=== PATIENT | male | born 1945 | race Caucasian/White ===

== ENCOUNTER 2016-07-29 10:24 | Emergency (ER) | payer MEDICARE, BC ==
[2016-07-29] MEDS ORDERED: DOXYcycline CAP(*) 100 MG PO ONE (10:46)
--- NOTE | 2016-07-29 10:53 | UC ---
Skin Complaint HPI - HPI Summary HPI Summary: 71 y/o male presents to the urgent care c/o of a tick bite on his left buttocks that he noticed this morning. He was gardening 2 days ago. He brings the tick which still alive. Patient states there mild pain aroun the area of the tick bite. Denies fever, SOB, Chest pain, N/V/D. After making him aware of his elevated BP pt staes he is a little bit anxious and that he took his BP medication this morning. Pt reports he has a f/u with his PCP next week for his neuropathy. - History of Current Complaint Chief Complaint: UCSkin Time Seen by Provider: 07/29/16 10:29 Stated Complaint: TICK BITE Hx Obtained From: Patient Onset/Duration: Sudden Onset, Lasting Hours, Still Present Skin Exposure Onset/Duration: Days Ago - 2 days Timing: Constant Pain Intensity: 1 Pain Scale Used: 0-10 Numeric Location: Other - left buttocks Alleviating: Nothing Associated Signs & Symptoms: Negative: Nausea, Vomiting, Numbness, Fever, Lightheadedness Related History: Insect Bite/Sting - tick bite - Allergy/Home Medications Allergies/Adverse Reactions: Allergies Allergy/AdvReac Type Severity Reaction Status Date / Time No Known Allergies Allergy Verified 07/29/16 10:29 Home Medications: Home Medications Amlodipine Besylate [Norvasc 5 mg tab] 5 mg PO DAILY 07/29/16 [History Confirmed 07/29/16] Review of Systems Skin: Other - tick bite Eyes: Negative ENT: Negative Respiratory: Negative Gastrointestinal: Negative Genitourinary: Negative Motor: Negative Neurovascular: Negative Musculoskeletal: Negative Neurological: Negative Psychological: Negative All Other Systems Reviewed And Are Negative: Yes PMH/Surg Hx/FS Hx/Imm Hx Endocrine History Of: Denies: Diabetes Cardiovascular History Of: Reports: Hypertension Denies: Pacemaker/ICD GI/ History Of: Denies: Renal Disease - Surgical History Surgical History: Yes Surgery Procedure, Year, and Place: 2009 RT EAR EXCISION OF EXOSTOSIS ( REMOVAL OF BONE -NO IMPLANTS) AT [facility] – [place]. 2010 LT EAR EXCISION OF EXOSTOSIS AT [facility] – [place]. VASECTOMY - Family History Known Family History: Positive: Cardiac Disease, Hypertension - Social History Occupation: Retired Alcohol Use: Daily Alcohol Amount: 1 drink a day Substance Use Type: None Smoking Status (MU): Never Smoked Tobacco Physical Exam Triage Information Reviewed: Yes Appearance: Well-Appearing, No Pain Distress, Well-Nourished Vital Signs: Initial Vital Signs Temp 97.9 F 07/29/16 10:31 Pulse 69 07/29/16 10:31 Resp 16 07/29/16 10:31 BP 174/87 07/29/16 10:31 Pulse Ox 98 07/29/16 10:31 Vital Signs Reviewed: Yes Eye Exam: Normal Eyes: Positive: Conjunctiva Clear ENT Exam: Normal ENT: Positive: Normal ENT inspection, Hearing grossly normal, Pharynx normal, TMs normal Dental Exam: Normal Neck: Positive: Supple, Nontender, No Lymphadenopathy Respiratory Exam: Normal Respiratory: Positive: Lungs clear, Normal breath sounds Cardiovascular Exam: Normal Cardiovascular: Positive: RRR, Pulses Normal Abdominal Exam: Normal Abdomen Description: Positive: Nontender, No Organomegaly Musculoskeletal Exam: Normal Musculoskeletal: Positive: Strength Intact Neurological Exam: Normal Psychological Exam: Normal Psychological: Positive: Other: - LF buttocks tick bite with out presence of any remnants. Mild erythma and tenderness on palpation. no swelling Course/Dx - Course Course Of Treatment: TICK BITE: PT desi in to the clinic the tick alive. Patient was given Doxycycline 200mg PO prophylactically against Lyme disease. Patient understood and agree and tolerated well medication. Uncontrolled HTN: BP: 174/87 HR:69. Patient states he is anxious due to tick bite and that he took BP medication this morning Amlodipine 5mg PO qd. Patient advised to decrease salt intake and f/u with his PCP next week. Monitor his BP at home. Pt understood and agree. - Differential Diagnoses - Skin Complaint Differential Diagnoses: Cellulitis, Local Allergic Reaction, Other - tick bite, - Diagnoses Provider Diagnoses: Tick bite, Uncontrolled hypertension Discharge - Discharge Plan Condition: Stable Disposition: HOME Patient Education Materials: Tick Bite (ED), Hypertension (ED) Referrals: Rafael Beltran MD [Primary Care Provider] - 1 Week Additional Instructions: Patient given prophylactic antibiotics for lyme disease. Patient advised to f/ u with PCP for uncontrolled hypertension and decrease salt intake. If symptoms of dizziness or headache develop please return to the urgent care or f/u with your PCP
[2016-07-29 10:58] VITALS: BP 174/87
== END 2016-07-29 11:11 | disposition home or self-care (01) ==
LOC: UCEAST 10:24
DX: S30.860A Insect bite (nonvenomous) of lower back and pelvis, initial encounter (principal); W57.XXXA Bitten or stung by nonvenomous insect and other nonvenomous arthropods, initial encounter; Y93.9 Activity, unspecified; Y92.9 Unspecified place or not applicable; I10 Essential (primary) hypertension
CPT/HCPCS: 99212; A9270-GY; G0463

== ENCOUNTER 2016-12-30 17:14 | Emergency (ER) | payer MEDICARE, BC ==
[2016-12-30 17:28] VITALS: BP 156/96
--- NOTE | 2016-12-30 17:44 | UC ---
Hypertension HPI - HPI Summary HPI Summary: 71 year old male presents with complains of hypertension, dizziness, and weakness . He was told by his physician to increase his dose of lorsartan to 100 mg daily but he continues to feel dizzy and weak. - History of Current Complaint Chief Complaint: UCGeneralIllness Stated Complaint: HIGH BLOOD PRESSURE Time Seen by Provider: 12/30/16 17:41 Hx Obtained From: Patient Onset/Duration: Sudden Onset - Allergies/Home Medications Allergies/Adverse Reactions: Allergies Allergy/AdvReac Type Severity Reaction Status Date / Time No Known Allergies Allergy Verified 12/30/16 17:28 Home Medications: Home Medications Losartan TAB* [Cozaar TAB*] 100 mg PO DAILY 12/30/16 [History Confirmed 12/30/16 ] PMH/Surg Hx/FS Hx/Imm Hx Previously Healthy: Yes - Surgical History Surgical History: Yes Surgery Procedure, Year, and Place: 2009 RT EAR EXCISION OF EXOSTOSIS ( REMOVAL OF BONE -NO IMPLANTS) AT [facility]. 2010 LT EAR EXCISION OF EXOSTOSIS AT [facility]. VASECTOMY - Family History Known Family History: Positive: Cardiac Disease, Hypertension - Social History Alcohol Use: Daily Alcohol Amount: 1 drink a day Substance Use Type: None Smoking Status (MU): Never Smoked Tobacco Review of Systems Constitutional: Chills, Fatigue Skin: Negative Eyes: Negative ENT: Negative Respiratory: Negative Cardiovascular: Negative Gastrointestinal: Negative Genitourinary: Negative Motor: Negative Neurovascular: Negative Musculoskeletal: Negative Neurological: Negative Psychological: Negative All Other Systems Reviewed And Are Negative: Yes Physical Exam Triage Information Reviewed: Yes Vital Signs: Initial Vital Signs Temp 36.9 C 12/30/16 17:22 Pulse 87 12/30/16 17:22 Resp 18 12/30/16 17:22 BP 156/96 12/30/16 17:22 Pulse Ox 100 12/30/16 17:22 Vital Signs Reviewed: Yes Eye Exam: Normal ENT Exam: Normal Dental Exam: Normal Neck exam: Normal Neck: Positive: 1 Respiratory Exam: Normal Cardiovascular Exam: Normal Abdominal Exam: Normal Musculoskeletal Exam: Normal Neurological Exam: Normal Psychological Exam: Normal Skin Exam: Normal Hypertension Course/Dx - Differential Dx/Diagnosis Provider Diagnoses: hypertension. weakness. dizziness Discharge - Discharge Plan Condition: Stable Disposition: HOME Patient Education Materials: Hypertension (ED) Referrals: Rafael Beltran MD [Primary Care Provider] - Additional Instructions: patient suggested to go to the er for hypertension, dizziness and weakness
== END 2016-12-30 18:06 | disposition home or self-care (01) ==
LOC: UCEAST 17:14
DX: I10 Essential (primary) hypertension (principal); R53.1 Weakness; R42 Dizziness and giddiness
CPT/HCPCS: 99211; G0463

== ENCOUNTER 2016-12-30 18:25 | Emergency (ER) | payer MEDICARE, BC ==
[2016-12-30 20:41] LABS: Hematocrit 45 % (42-52); Hemoglobin 15.1 g/dl (14.0-18.0); Mean Corpuscular HGB Conc 34 g/dl (31-36); Mean Corpuscular Hemoglobin 32 pg (27-31); Mean Corpuscular Volume 95 fL (80-94); Mean Platelet Volume 8 um3 (7.4-10.4); Red Blood Count 4.71 10^6/ul (4.0-5.4); Red Cell Distribution Width 13 % (10.5-15)
[2016-12-30 20:44] LABS: Urine Bilirubin Negative (Negative); Urine Glucose Negative (Negative); Urine Nitrite Negative (Negative)
[2016-12-30 20:56] LABS: ALT 13 U/L (7-52); AST 13 U/L (13-39); Alkaline Phosphatase 49 U/L (34-104); Anion Gap 7 mmol/L (2-11); BUN/Creatinine Ratio 17.4 (8-20); Blood Urea Nitrogen 16 mg/dL (6-24); C Reactive Protein < 1.00 mg/L (< 5.00); CO2 Carbon Dioxide 26 mmol/L (22-32); Calcium 9.2 mg/dL (8.6-10.3); Chloride 106 mmol/L (101-111); EGFR African American 104.9 (>60); EGFR Non-African American 81.6 (>60); Globulin 3.1 g/dL (2-4); Glucose 91 mg/dL (70-100); Magnesium 2.1 mg/dL (1.9-2.7); Potassium 3.6 mmol/L (3.5-5.0); Sodium 139 mmol/L (133-145); Total Protein 7.1 g/dL (6.4-8.9)
[2016-12-30 21:45] LABS: TSH (Thyroid Stimulating Horm) 0.92 mcIU/mL (0.34-5.60)
[2016-12-30 21:53] VITALS: BP 155/88
--- NOTE | 2016-12-30 21:55 | ED ---
Chuyita Rios Abhishek, scribed for Jamison Branch MD on 12/30/16 at 2027 . Hypertension - HPI Summary HPI Summary: This patient is a 71 year old M presenting to [facility] with a chief complaint of HTN. The CC is described as gradual onset and worse since this weekend. The patient rates the pain 0/10 in severity. Symptoms aggravated by nothing. Symptoms alleviated by nothing. Patient reports tremors, lightheadedness and intermittent stiffness in the neck and shoulders. Pt states BP at 184/100 at 1700. Patient denies CP, abd pain, and decreased appetite. PMHx includes HTN and degenerative disk disease and denies thyroid disease, UT, DM, and Lupus. - History of Current Complaint Chief Complaint: EDHypertension Stated Complaint: HIGH BP/SENT FROM CC Time Seen by Provider: 12/30/16 19:33 Hx Obtained From: Patient Onset/Duration: Worse Since - this Timing: Constant Associated Signs & Symptoms: Other: - tremors, lightheadedness and intermittent stiffness in the neck and shoulders - Risk Factors Cardiac Risk Factors: Hypertension - Allergies/Home Medications Allergies/Adverse Reactions: Allergies Allergy/AdvReac Type Severity Reaction Status Date / Time No Known Allergies Allergy Verified 12/30/16 17:28 PMH/Surg Hx/FS Hx/Imm Hx Endocrine/Hematology History: Denies: Hx Diabetes, Hx Systemic Lupus Erythematosus, Hx Thyroid Disease Cardiovascular History: Reports: Hx Hypertension Denies: Hx Myocardial Infarction, Hx Pacemaker/ICD Respiratory History: Denies: Hx Asthma, Hx Chronic Obstructive Pulmonary Disease (COPD) GI History: Denies: Hx Ulcer History: Denies: Hx Dialysis, Hx Renal Disease Musculoskeletal History: Reports: Hx Arthritis - Osteoarthritis, Hx Back Problems, Other Musculoskeletal History - Peripheral Neuropathy Denies: Hx Scoliosis Sensory History: Reports: Hx Contacts or Glasses - Reading, Hx Hearing Aid - removed Opthamlomology History: Reports: Hx Contacts or Glasses - Reading Psychiatric History: Denies: Hx Panic Disorder - Surgical History Surgery Procedure, Year, and Place: 2009 RT EAR EXCISION OF EXOSTOSIS ( REMOVAL OF BONE -NO IMPLANTS) AT [facility] – [place]. 2010 LT EAR EXCISION OF EXOSTOSIS AT [facility] [place]. VASECTOMY Infectious Disease History: No Infectious Disease History: Denies: Hx Clostridium Difficile, Hx Hepatitis, Hx Human Immunodeficiency Virus (HIV), Hx of Known/Suspected MRSA, Hx Shingles, Hx Tuberculosis, Hx Known/ Suspected VRE, Hx Known/Suspected VRSA, History Other Infectious Disease, Traveled Outside the [place] in Last 30 Days - Family History Known Family History: Positive: Cardiac Disease, Hypertension - Social History Alcohol Use: Daily Alcohol Amount: 1 drink a day Substance Use Type: Reports: None Smoking Status (MU): Never Smoked Tobacco Review of Systems Positive: Other - tremors Eyes: Negative ENT: Negative Positive: Other - HTN. Negative: Chest Pain Respiratory: Negative Positive: Other - Negative decreased appetite. Negative: Abdominal Pain Genitourinary: Negative Positive: Other - intermittent stiffness in the neck and shoulders Skin: Negative Neurological: Other - lightheadness Psychological: Normal All Other Systems Reviewed And Are Negative: Yes Physical Exam - Summary Physical Exam Summary: General: well-appearing, no pain distress Skin: warm, color reflects adequate perfusion, dry Head: normal Eyes: EOMI, SERGEY ENT: normal Neck: supple, nontender Respiratory: CTA, breath sounds present Cardiovascular: RRR Abdomen: soft, nontender Bowel: present Musculoskeletal: normal, strength/ROM intact Neurological: normal, sensory/motor intact, A&O x3 Psychological: affect/mood appropriate Triage Information Reviewed: Yes Vital Signs On Initial Exam: Initial Vitals Temp Pulse Resp BP Pulse Ox 97.4 F 92 20 167/100 99 12/30/16 18:28 12/30/16 18:28 12/30/16 18:28 12/30/16 18:28 12/30/16 18:28 Vital Signs Reviewed: Yes - Michelle Coma Scale Coma Scale Total: 15 Diagnostics - Vital Signs Vital Signs Temp Pulse Resp BP Pulse Ox 12/30/16 20:02 100 12/30/16 20:00 78 12 158/94 98 12/30/16 19:30 78 13 158/83 98 12/30/16 19:18 85 7 99 12/30/16 19:16 173/87 12/30/16 18:28 97.4 F 92 20 167/100 99 - Laboratory Lab Results: Lab Results 12/30/16 12/30/16 12/30/16 Range/Units 20:33 20:33 20:33 WBC 6.0 (3.5-10.8) 10^3/ul RBC 4.71 (4.0-5.4) 10^6/ul Hgb 15.1 (14.0-18.0) g/dl Hct 45 (42-52) % MCV 95 H (80-94) fL MCH 32 H (27-31) pg MCHC 34 (31-36) g/dl RDW 13 (10.5-15) % Plt Count 194 (150-450) 10^3/ul MPV 8 (7.4-10.4) um3 Neut % (Auto) 61.1 (38-83) % Lymph % (Auto) 30.7 (25-47) % [place] % (Auto) 5.9 (1-9) % Eos % (Auto) 0.7 (0-6) % Baso % (Auto) 1.6 (0-2) % Absolute Neuts (auto) 3.7 (1.5-7.7) 10^3/ul Absolute Lymphs (auto) 1.8 (1.0-4.8) 10^3/ul Absolute Monos (auto) 0.4 (0-0.8) 10^3/ul Absolute Eos (auto) 0 (0-0.6) 10^3/ul Absolute Basos (auto) 0.1 (0-0.2) 10^3/ul Absolute Nucleated RBC 0 10^3/ul Nucleated RBC % 0 Sodium 139 (133-145) mmol/L Potassium 3.6 (3.5-5.0) mmol/L Chloride 106 (101-111) mmol/L Carbon Dioxide 26 (22-32) mmol/L Anion Gap 7 (2-11) mmol/L BUN 16 (6-24) mg/dL Creatinine 0.92 (0.67-1.17) mg/dL Est GFR ( Amer) 104.9 (>60) Est GFR (Non-Af Amer) 81.6 (>60) BUN/Creatinine Ratio 17.4 (8-20) Glucose 91 (70-100) mg/dL Calcium 9.2 (8.6-10.3) mg/dL Magnesium 2.1 (1.9-2.7) mg/dL Total Bilirubin 0.60 (0.2-1.0) mg/dL AST 13 (13-39) U/L ALT 13 (7-52) U/L Alkaline Phosphatase 49 (34-104) U/L Troponin I 0.00 (<0.04) ng/mL C-Reactive Protein < 1.00 (< 5.00) mg/L B-Natriuretic Peptide 36 ( - 100) pg/mL Total Protein 7.1 (6.4-8.9) g/dL Albumin 4.0 (3.2-5.2) g/dL Globulin 3.1 (2-4) g/dL Albumin/Globulin Ratio 1.3 (1-3) TSH 0.92 (0.34-5.60) mcIU/mL Urine Color Urine Appearance Urine pH (5-9) Ur Specific Amanda (1.010-1.030) Urine Protein (Negative) Urine Ketones (Negative) Urine Blood (Negative) Urine Nitrate (Negative) Urine Bilirubin (Negative) Urine Urobilinogen (Negative) Ur Leukocyte Esterase (Negative) Urine Glucose (Negative) 12/30/16 Range/Units 20:33 WBC (3.5-10.8) 10^3/ul RBC (4.0-5.4) 10^6/ul Hgb (14.0-18.0) g/dl Hct (42-52) % MCV (80-94) fL MCH (27-31) pg MCHC (31-36) g/dl RDW (10.5-15) % Plt Count (150-450) 10^3/ul MPV (7.4-10.4) um3 Neut % (Auto) (38-83) % Lymph % (Auto) (25-47) % [place] % (Auto) (1-9) % Eos % (Auto) (0-6) % Baso % (Auto) (0-2) % Absolute Neuts (auto) (1.5-7.7) 10^3/ul Absolute Lymphs (auto) (1.0-4.8) 10^3/ul Absolute Monos (auto) (0-0.8) 10^3/ul Absolute Eos (auto) (0-0.6) 10^3/ul Absolute Basos (auto) (0-0.2) 10^3/ul Absolute Nucleated RBC 10^3/ul Nucleated RBC % Sodium (133-145) mmol/L Potassium (3.5-5.0) mmol/L Chloride (101-111) mmol/L Carbon Dioxide (22-32) mmol/L Anion Gap (2-11) mmol/L BUN (6-24) mg/dL Creatinine (0.67-1.17) mg/dL Est GFR ( Amer) (>60) Est GFR (Non-Af Amer) (>60) BUN/Creatinine Ratio (8-20) Glucose (70-100) mg/dL Calcium (8.6-10.3) mg/dL Magnesium (1.9-2.7) mg/dL Total Bilirubin (0.2-1.0) mg/dL AST (13-39) U/L ALT (7-52) U/L Alkaline Phosphatase (34-104) U/L Troponin I (<0.04) ng/mL C-Reactive Protein (< 5.00) mg/L B-Natriuretic Peptide ( - 100) pg/mL Total Protein (6.4-8.9) g/dL Albumin (3.2-5.2) g/dL Globulin (2-4) g/dL Albumin/Globulin Ratio (1-3) TSH (0.34-5.60) mcIU/mL Urine Color Yellow Urine Appearance Clear Urine pH 6.0 (5-9) Ur Specific Amanda 1.017 (1.010-1.030) Urine Protein Negative (Negative) Urine Ketones 1+ H (Negative) Urine Blood Negative (Negative) Urine Nitrate Negative (Negative) Urine Bilirubin Negative (Negative) Urine Urobilinogen Negative (Negative) Ur Leukocyte Esterase Negative (Negative) Urine Glucose Negative (Negative) Result Diagrams: 12/30/16 20:33 12/30/16 20:33 Lab Statement: Any lab studies that have been ordered have been reviewed, and results considered in the medical decision making process. - EKG 2045 EKG Interpretation: normal sinus rhythm, 76 bpm, Normal ST with no elevation Hypertension Course/Dx - Course Course Of Treatment: BP DECREASED IN ED. PATIENT FEELS CALMER. RESULTS DISCUSSED WITH PATIENT. F/U WITH PMD TOMORROW. NO CRITICAL CARE TIME. - Diagnoses Provider Diagnoses: Hypertension Discharge - Discharge Plan Condition: Stable Disposition: HOME Patient Education Materials: Hypertension (ED) Referrals: Rafael Beltran MD [Primary Care Provider] - Additional Instructions: FOLLOW UP WITH YOUR DOCTOR. RETURN TO THE EMERGENCY DEPARTMENT FOR ANY WORSENING OF YOUR CONDITION OR QUESTIONS OR CONCERNS. The documentation as recorded by the Chuyita xiao Abhishek accurately reflects the service I personally performed and the decisions made by me, Jamison Branch MD.
== END 2016-12-30 22:13 | disposition home or self-care (01) ==
LOC: ED 18:25
DX: I10 Essential (primary) hypertension (principal); G62.9 Polyneuropathy, unspecified; M19.90 Unspecified osteoarthritis, unspecified site
CPT/HCPCS: 36415; 80053; 81003; 83735; 83880; 84443; 84484; 85025; 86140; 93005